=== PATIENT | female | born 1985 | race Caucasian/White ===

== ENCOUNTER 2016-12-02 22:01 | Emergency (ER) | payer OTHER ==
--- NOTE | 2016-12-02 22:07 | UC ---
Dental HPI - HPI Summary HPI Summary: 31 YEAR OLD FEMALE PRESENTS WITH COMPLAINS OF DENTAL RIGHT SIDED ABSCESS - History of Current Complaint Stated Complaint: DENTAL Time Seen by Provider: 12/02/16 22:04 Hx Obtained From: Patient Onset/Duration: Sudden Onset Severity: Moderate Pain Scale Used: 0-10 Numeric - 5 - Allergies/Home Medications Allergies/Adverse Reactions: Allergies Allergy/AdvReac Type Severity Reaction Status Date / Time Penicillins [PCN] Allergy Hives Verified 12/02/16 22:09 [place]ribner Allergy Hives Verified 12/02/16 22:09 bee Allergy Anaphylatic Uncoded 12/02/16 22:09 Shock Home Medications: Home Medications Ibuprofen TAB* [Motrin TAB* 600 MG] 1,200 mg PO ONCE PRN 12/02/16 [History Confirmed 12/02/16] PMH/Surg Hx/FS Hx/Imm Hx Previously Healthy: Yes Review of Systems Constitutional: Negative Skin: Negative Eyes: Negative ENT: Dental Pain Respiratory: Negative Cardiovascular: Negative Gastrointestinal: Negative Genitourinary: Negative Motor: Negative Neurovascular: Negative Musculoskeletal: Negative Neurological: Negative Psychological: Negative All Other Systems Reviewed And Are Negative: Yes Physical Exam Triage Information Reviewed: Yes Eye Exam: Normal ENT Exam: Normal Dental: Positive: Abscess @ Neck exam: Normal Neck: Positive: 1 Respiratory Exam: Normal Cardiovascular Exam: Normal Abdominal Exam: Normal Musculoskeletal Exam: Normal Neurological Exam: Normal Psychological Exam: Normal Skin Exam: Normal Dental Complaint Course/Dx - Differential Dx/Diagnosis Differential Diagnosis/Dx: Dental Abscess Provider Diagnoses: DENTAL ABSCESS Discharge - Discharge Plan Condition: Stable Disposition: HOME Prescriptions: Chlorhexidine MW 0.12% 473ML* [Peridex Mouth Wash 0.12%*] 15 ml MT TID PC #1 btl Erythromycin TAB* 500 mg PO QID #40 tab Naproxen [Naprosyn 500 mg] 500 mg PO BID PRN #30 tab PRN Reason: Pain Patient Education Materials: Dental Abscess (ED) Referrals: No Primary Care Phys,NOPCP [Primary Care Provider] -
[2016-12-02 22:09] VITALS: BP 113/65
[2016-12-02] MEDS ORDERED: Naproxen TAB* 250 MG PO ONE (22:11)
[2016-12-02] MEDS ORDERED: Erythromycin TAB* 250 MG PO ONE (22:12)
[2016-12-02] MEDS ORDERED: Lidocaine 2% VISCOUS* 15 ML UDC SWISH SPIT ONE (22:12)
== END 2016-12-02 22:27 | disposition home or self-care (01) ==
LOC: UCCORT 22:01
DX: K04.7 Periapical abscess without sinus (principal); Z88.0 Allergy status to penicillin; Z91.030 Bee allergy status
CPT/HCPCS: 99202; A9270-GY; G0463

== ENCOUNTER 2018-12-17 09:44 | Emergency (ER) | payer OTHER ==
[2018-12-17 09:59] VITALS: BP 109/61
--- NOTE | 2018-12-17 10:29 | UC ---
Minor Trauma HPI - HPI Summary HPI Summary: Pt presents with c/o left side rib pain, s/p falling off inner tube while being [place] by boat in [place] ~ 7 days ago. Pt states pain has not improved, worsenes with deep breaths. - History of Current Complaint Chief Complaint: UCUpperExtremity Stated Complaint: LEFT RIB PAIN Time Seen by Provider: 12/17/18 09:55 Hx Obtained From: Patient Hx Last Menstrual Period: 12/04/18 ?: No Onset/Duration: Sudden Onset Onset Of Pain: Post Accident Severity Initially: Moderate Severity Currently: Severe Pain Intensity: 9 Mechanism Of Injury: Blunt Trauma - was being pulled behind boat on [place] on inner tube and fell off. Aggravating Factor(s): Deep Breaths, Movement Alleviating Factor(s): Nothing - Risk Factors Penetrating Injury Risk Factors: Negative Compartment Syndrome Risk Factors: Pain - Allergies/Home Medications Allergies/Adverse Reactions: Allergies Allergy/AdvReac Type Severity Reaction Status Date / Time Penicillins Allergy Hives Verified 12/17/18 10:00 PMH/Surg Hx/FS Hx/Imm Hx Previously Healthy: Yes - Surgical History Surgical History: Yes Surgery Procedure, Year, and Place: Tubal Ligation. Right Arm Surgery - Family History Known Family History: Positive: Cardiac Disease - Social History Occupation: Student Lives: With Family Alcohol Use: Occasionally Substance Use Type: None Smoking Status (MU): Heavy Every Day Tobacco Smoker Type: Cigarettes Amount Used/How Often: 1/2-1 ppd Length of Time of Smoking/Using Tobacco: since age 24 Have You Smoked in the Last Year: Yes Household Exposure Type: Cigarettes - Immunization History Vaccination Up to Date: Yes Review of Systems All Other Systems Reviewed And Are Negative: Yes Constitutional: Positive: Negative Skin: Positive: Negative Eyes: Positive: Negative ENT: Positive: Negative Respiratory: Positive: Negative Cardiovascular: Positive: Negative Gastrointestinal: Positive: Negative Genitourinary: Positive: Negative Motor: Positive: Decreased ROM - left side rib cage Neurovascular: Positive: Negative Musculoskeletal: Positive: Arthralgia, Decreased ROM, Myalgia Neurological: Positive: Negative Psychological: Positive: Negative Is Patient Immunocompromised?: No Physical Exam Triage Information Reviewed: Yes Appearance: Pain Distress, Thin Vital Signs: Initial Vital Signs Temp 98.2 F 12/17/18 09:54 Pulse 77 12/17/18 09:54 Resp 16 12/17/18 09:54 BP 109/61 12/17/18 09:54 Pulse Ox 99 12/17/18 09:54 Vital Signs Reviewed: Yes Eye Exam: Normal ENT Exam: Normal Dental Exam: Normal Neck exam: Normal Respiratory: Positive: Crackles - left mid and lower, Expiration, Inspiration Cardiovascular Exam: Normal Musculoskeletal: Positive: ROM Limited @ - left side rib cage Neurological Exam: Normal Psychological Exam: Normal Skin Exam: Normal Diagnostics - Radiology No standard instances Radiology Interpretation Completed By: Radiologist - Armature Balancer: Carey Enriquez S, ([id number]) Agriculture Inspector: ALLISON, (NUANCE) Report Date: 2018 10:13:00 Report Status: Final ======= Start of Report Content Patient Name: IZABEL BURTON Medical Record#: [id number] Ordering Physician: Viridiana Jama SHEAR ASSEMBLER Acct.#: [id number] : 1985 Age: 33 Sex: F Location: [facility] Exam Date: 12/17/18 1013 ADM Status: REG ER Order Information: RIBS LT UNI W/PA CH MIN 3 VWS Accession Number: [id number] CPT: 63640 Indication: Fall, chest injury. 3 views of the left ribs including dual energy PA views demonstrates no mediastinal shift. Heart is of normal size and configuration. Lung hanson appear clear. No pneumothorax is noted. IMPRESSION: No fracture of the left ribs is noted. No pneumothorax is noted. ___ <Electronically signed by Carey Enriquez MD in [place]> 12/17/18 1034 Dictated By: Carey Enriquez MD Dictated Date/Time: 12/17/181031 Transcribed Date/Time: 12/17/18 103 Copy to: CC:Viridiana Jama SHEAR ASSEMBLER; Danisha Reyes MD; No Primary Care Phys,NOPCP Imaging - [facility] Imaging - [facility] - [facility] [address] [place], [place] [id number] [place] [id number] [place] [phone] ph [phone] ph [phone] ph ) End of Report Content Minor Trauma Course/Dx - Differential Dx/Diagnosis Differential Diagnosis/HQI/PQRI: Contusion(s), Fracture Provider Diagnosis: Rib pain on left side, Contusion of rib on left side Discharge ED - Sign-Out/Discharge Documenting (check all that apply): Patient Departure All imaging exams completed and their final reports reviewed: Yes - Discharge Plan Condition: Stable Disposition: HOME Patient Education Materials: Rib Contusion (ED) Referrals: [facility] [place] [facility]IAN REFERRAL [Outside] - If Needed No Primary Care Phys,NOPCP [Primary Care Provider] - - Billing Disposition and Condition Condition: STABLE Disposition: Home
== END 2018-12-17 10:47 | disposition home or self-care (01) ==
LOC: UCCORT 09:44
DX: R07.81 Pleurodynia (principal); S20.20XA Contusion of thorax, unspecified, initial encounter; V94.31XA Injury to rider of (inflatable) recreational watercraft being pulled behind other watercraft, initial encounter; Y93.16 Activity, rowing, canoeing, kayaking, rafting and tubing; Y92.39 Other specified sports and athletic area as the place of occurrence of the external cause; F17.210 Nicotine dependence, cigarettes, uncomplicated
CPT/HCPCS: 99211; G0463